=== PATIENT | female | born 1960 | race Caucasian/White ===

== ENCOUNTER → 2020-08-05 10:43 | Outpatient (CLI) | payer SELFPAY ==
--- NOTE | ~2020-08-05 | US_ITS ---
EXAMINATION: US thyroid DATE: 08/05/2020 11:10 INDICATION: Chronic lymphocytic thyroiditis TECHNIQUE: Multiple ultrasound images of the thyroid were obtained. COMPARISON: None. FINDINGS: The right thyroid lobe measures 6.6 x 3.2 x 3.2 cm. The left thyroid lobe measures 4.5 x 1.2 x 1.6 c m. 3.2 cm wider than tall isoechoic solid nodule with partially ill-defined partially smooth margins and without echogenic foci. (TI-RADS 3, mildly suspicious , FNA if >=2.5 cm, annual followup is >1.5 cm) in the right thyroid. There is a second 7 mm wider than tall solid very hypoechoic nodule withou t echogenic foci in the right thyroid lobe (TI-RADS 4, moderately suspicious , FNA if >=1.5 cm, annua l followup is >1 cm). 1 cm smaller than wide hypoechoic nodule with ill-defined margins and coarse sh adowing calcifications in the left thyroid lobe (TI-RADS 5, highly suspicious , FNA if >=1.0 cm, josh al followup is >0.5 cm). There is coarsened thyroid echogenicity with more prominent in the right thy roid lobe with there is also heterogeneous decreased echogenicity with similar nodular pattern which would be consistent with given history of chronic lymphocytic thyroiditis. IMPRESSION: 1. Multinodular goiter. Recommend biopsy of at least the 1 cm TI RADS 5 left thyroid nodule. Could al so consider biopsy of the 3.2 cm TI RADS 3 right thyroid nodule. 2. Heterogeneous thyroid echogenicity with coarsened echotexture consistent with given history of chr onic lymphocytic thyroiditis. Reviewed, dictated and finalized at location A. [facility] IMPRESSION: 1. Multinodular goiter. Recommend biopsy of at least the 1 cm TI RADS 5 left th yroid nodule. Could also consider biopsy of the 3.2 cm TI RADS 3 right thyroid nodule. 2. Heterogeneous thyroid echogenicity with coarsened echotexture consistent wit h given history of chronic lymphocytic thyroiditis.
== END ==
PROVIDERS: PCP Physician Assistant; Visit Provider Physician Assistant
DX: E06.3 Autoimmune thyroiditis (principal); E04.2 Nontoxic multinodular goiter
CPT/HCPCS: 76536